=== PATIENT | male | born 1965 | race Caucasian/White ===

== ENCOUNTER 2023-12-15 12:06 | Emergency (ER) | payer MEDICAID, SELFPAY ==
--- NOTE | ~2023-12-15 | CT_ITS ---
EXAMINATION: CT HEAD WITHOUT CONTRAST CLINICAL INFORMATION: Dizziness COMPARISON: None available. TECHNIQUE: Contiguous axial imaging was performed from the skull base to vertex without intravenous administration of contrast. This CT examination was performed using dose optimization techniques as appropriate, variously including the following: *Automated exposure control *Adjustment of mA and/or kV according to patient size (this includes techniques or standardized protocols for targeted exams where dose is matched to indication/reason for exam; i.e. extremities or head) *Use of iterative reconstruction technique DLP: 694 mGy-cm FINDINGS: There is a small low density focus seen in the left basal ganglia, chronicity uncertain. A small lacune could have this appearance. There may be very similar finding in the right basal ganglia. If there is concern for stroke in this patient and I would recommend MRI with diffusion-weighted sequences. Otherwise, no intra or extra-axial fluid collection, hemorrhage, mass, or mass effect. Calvarium intact. CT/CT head/brain wo IV con IMPRESSION: No fracture or intracranial bleed. Small hypodensities in the left and right basal ganglia. If symptoms warrant, further evaluation with MRI may be helpful.
--- NOTE | ~2023-12-15 | CT_ITS ---
EXAMINATION: CT ANGIOGRAM HEAD CT ANGIOGRAM NECK CLINICAL INFORMATION: Dizziness. Tongue paresthesia. Transient ischemic attacks. COMPARISON: CT head and cervical spine from 12/15/2023. TECHNIQUE: Initial noncontrast reflesher imaging of the head and neck was performed. Noncontrast head CT was also performed. Test bolus sequences followed by intravenous administration 70 mL of Omnipaque 350. Helical imaging was performed in the axial plane from the aortic arch to the skull vertex. Delayed postcontrast imaging of the head was also performed. The data was processed at the lead cytogenetic technologist's workstation for generation of MIP sequences. Angled MIPs and volume rendered reformatted images were also generated at an offline 3D workstation. Stenoses are assessed in accordance with NASCET criteria unless otherwise indicated. This CT examination was performed using dose optimization techniques as appropriate, variously including the following: *Automated exposure control. *Adjustment of mA and/or kV according to patient size (this includes techniques or standardized protocols for targeted exams where dose is matched to indication/reason for exam; i.e. extremities or head). *Use of iterative reconstruction technique. DLP: 2358 mGy-cm FINDINGS: CT Head: There is no evidence of acute intracranial hemorrhage or edematous territorial infarction. Lacunar infarcts of the anterior aspect of the left putamen and lateral margin of the left thalamus. No additional loss of samuel-white matter differentiation. A few foci of hypoattenuation in the periventricular and deep white matter are consistent with mild microangiopathy. The ventricles are normal in morphology and size. No evidence for obstructive hydrocephalus. No abnormal mass effect or midline shift. No extra-axial fluid collections. No pathologic intra-axial enhancement. No acute soft tissue or osseous abnormalities. Mild mucosal thickening of the paranasal sinuses. The mastoid air cells and middle ear cavities are clear. Multifocal odontogenic enamel erosions and periapical lucencies. Chronic appearing depression of the left lamina papyracea. CT Neck: The thyroid gland and remaining cervical soft tissues are within normal limits. Changes of prior hinge laminoplasties from C3-C5. Moderate reversal the normal cervical lordosis centered on C4. Moderate degenerative stepwise anterolistheses of C2-C4. Mild degenerative stepwise retrolistheses of C4-C6. Advanced degenerative disc disease from C3-C6. Moderate degenerative disc disease at C2-C3 and C6-C7. Facet and uncovertebral joint arthropathy leads to osseous encroachment on the neural foramina from C2-C7. CT Upper Chest: Mild paraseptal emphysema the visualized upper lungs. Few calcified granulomas in the left upper lobe. Otherwise, the visualized lung apices and upper mediastinum are within normal limits. Neck CTA: Aortic Arch: Normal contour and caliber with moderate mixed fibrofatty and calcific type discogenic disease. Classic 3 vessel branching pattern of the aortic arch. Great Vessel Origins: No significant stenosis of the branch origins. Right Common Carotid Artery: No focal stenosis or occlusion. Cervical Right Internal Carotid Artery: Mixed fibrofatty and calcific atherosclerotic disease of the carotid bulb and proximal internal carotid artery causing less than 50% stenosis. Left Common Carotid Artery: No focal stenosis or occlusion. Cervical Left Internal Carotid Artery: Mixed fibrofatty and calcific atherosclerotic disease of the carotid bulb and proximal internal carotid artery causing less than 50% stenosis. Cervical Right Vertebral Artery: High-grade endoscopic stenosis of the origin. No additional No focal stenosis or occlusion. Cervical Left Vertebral Artery: Mildly dominant. No focal stenosis or occlusion. Brain CTA: Intracranial Internal Carotid Arteries: Calcific atherosclerotic disease of the intracranial internal carotid arteries without occlusion or flow-limiting stenosis. Right Anterior Cerebral Artery: Normal A1 segment. Normal opacification of the distal DOMENICA segments. Left Anterior Cerebral Artery: Normal A1 segment. Normal opacification of the distal DOMENICA segments. Anterior Communicating Artery: Normal. Right Middle Cerebral Artery: Normal M1 segment of the MCA without focal stenosis or occlusion. Normal arborization of the distal segments. Left Middle Cerebral Artery: Normal M1 segment of the MCA without focal stenosis or occlusion. Normal arborization of the distal segments. Right Vertebral Artery: Normal V4 segment. The posterior inferior cerebellar artery is not well opacified; however, there is no CT evidence of acute occlusion. Left Vertebral Artery: Normal V4 segment. The posterior inferior cerebellar artery is not well opacified; however, there is no CT evidence of acute occlusion. Basilar Artery: Normal without focal stenosis or occlusion. Normal appearance of the proximal superior cerebellar arteries. Right Posterior Cerebral Artery: The P1 segment is mildly diminutive. origin of the CERTIFIED NURSE AIDE with robust opacification of the posterior communicating artery. Normal opacification of the distal CERTIFIED NURSE AIDE segments. Left Posterior Cerebral Artery: Normal P1 segment. Normal opacification of the distal CERTIFIED NURSE AIDE segments. Normal opacification of the superior sagittal, straight, transverse, and sigmoid sinuses. CT/CT angio head neck IMPRESSION: 1. No evidence of acute intracranial hemorrhage or edematous territorial infarction. Lacunar infarcts of the left-sided deep nuclei. Mild underlying microangiopathy. 2. CTA of the head and neck without proximal occlusion. High-grade stenosis of the origin of the right vertebral artery. No additional flow-limiting stenoses. 3. Moderate to advanced multilevel degenerative spondyloarthropathy of the cervical spine.
--- NOTE | ~2023-12-15 | CT_ITS ---
EXAMINATION: CT CERVICAL SPINE WITHOUT CONTRAST CLINICAL INFORMATION: Dizziness. Pain COMPARISON: None available. TECHNIQUE: Thin section axial imaging with sagittal coronal reformats. This CT examination was performed using dose optimization techniques as appropriate, variously including the following: *Automated exposure control *Adjustment of mA and/or kV according to patient size (this includes techniques or standardized protocols for targeted exams where dose is matched to indication/reason for exam; i.e. extremities or head) *Use of iterative reconstruction technique DLP: 463 mGy-cm FINDINGS: Advanced degenerative changes observed, C3-C6 with posterior spurring noted at the C3-C4 level creating slight mass effect on the ventral aspect of the canal. Findings likely are chronic as there is dense sclerosis in the vertebral bodies with areas of cystic degenerative change in the region of the endplates. No evidence though for an acute fracture or destructive process. Postsurgical changes are observed at this level. CT/CT cervical spine wo IV con IMPRESSION: Extensive chronic changes noted and postsurgical changes observed but no evidence for an acute fracture. Fleischner guidelines were followed.
--- NOTE | ~2023-12-15 | CT_ITS ---
EXAMINATION: CT LUMBAR SPINE WITHOUT CONTRAST CLINICAL INFORMATION: Radiculopathy. Pain COMPARISON: None available. TECHNIQUE: Thin section axial images with sagittal coronal reformats through the lumbar spine are obtained. This CT examination was performed using dose optimization techniques as appropriate, variously including the following: *Automated exposure control *Adjustment of mA and/or kV according to patient size (this includes techniques or standardized protocols for targeted exams where dose is matched to indication/reason for exam; i.e. extremities or head) *Use of iterative reconstruction technique DLP; 402 mGy-cm FINDINGS: There is grade 1 forward spondylolisthesis with spondylolysis L5 upon S1 with posterior spurring. Disc space narrowing with gaseous disc degeneration observed. No fracture. At L1-L2, L2-L3, L3-L4 and L4-L5, no evidence for fracture or destructive lesion or encroachment on the spinal canal. The aorta demonstrates atherosclerotic change and ectasia but is nonaneurysmal. There is degenerative spurring in the SI joints right greater than left. Sacrum intact. CT/CT lumbar spine wo IV con IMPRESSION: Advanced degenerative changes observed particularly L5-S1 and the right SI joint but no evidence for an acute fracture.
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
[2023-12-15 12:10] VITALS: BP 108/77; PULSE 102; RESP 18; TEMP 36.7; O2SAT 100; BMI 27.9
[2023-12-15 14:39] VITALS: BP 149/86; PULSE 107; RESP 16; TEMP 36.7; O2SAT 99
--- NOTE | 2023-12-15 14:54 | ECG_ITS ---
Test Reason : WEAKNESS Blood Pressure : / mmHG Vent. Rate : 086 BPM Atrial Rate : 086 BPM P-R Int : 136 ms QRS Dur : 086 ms QT Int : 372 ms P-R-T Axes : 067 038 058 degrees QTc Int : 445 ms Normal sinus rhythm Normal ECG When compared with ECG of 11-DEC-2006 16:17, No significant change was found Referred By: Anisha Csaas Electronically Signed By:JOSHUA VILLA
[2023-12-15 15:18] LABS: MANUAL DIFF FLAG NO
[2023-12-15 15:31] LABS: Basophils Percent Auto 0.9 % (0-2); Eosinophils Absolute Auto 0.1 X10*3/uL (0.0-0.4); Eosinophils Percent Auto 1.7 % (0-4); Hematocrit 40.5 % (42.0-52.0); Hemoglobin 14.4 g/dl (14.0-18.0); Imm Gran Abs Auto 0.02 X10*3/uL (0.00-0.03); Imm Gran Pct Auto 0.4 % (0.0-0.4); Lymphocytes Absolute Auto 1.5 X10*3/uL (1.2-4.9); Lymphocytes Percent Auto 32.8 % (20-40); Mean Corpuscular HGB Conc 35.6 g/dl (31.0-36.0); Mean Corpuscular Hemoglobin 32.1 pg (27.0-33.0); Mean Corpuscular Volume 90.2 fL (80.0-98.0); Monocytes Absolute Auto 0.3 X10*3/uL (0.1-1.2); Monocytes Percent Auto 6.8 % (2-11); Neutrophils Absolute Auto 2.6 x10*3/uL (2.0-8.3); Neutrophils Percent Auto 57.4 % (45-73); Platelet Count 142 X10*3/uL (160-400); Red Blood Count 4.49 X10*6/uL (4.60-5.80); Red Cell Distribution Width 12.9 % (11.0-16.0); White Blood Count 4.6 X10*3/uL (4.8-10.8)
[2023-12-15 15:32] LABS: Alanine Aminotransferase 204 U/L (0-40); Albumin Level 4.4 g/dL (3.5-5.0); Alkaline Phosphatase 106 U/L (39-117); Anion Gap 18 (12-20); Aspartate Amino Transferase 78 U/L (5-37); Bilirubin Direct 0.3 mg/dL (0.0-0.5); Bilirubin Total 0.6 mg/dL (0.0-1.0); Blood Urea Nitrogen 24 mg/dL (9-16); Calcium 10.2 mg/dL (8.4-10.2); Carbon Dioxide 29 mmol/L (22-29); Chloride 93 mmol/L (96-108); Creatinine Clr Calc Pharmacy 51.5; Estimated Glomerular Filt Rate 39; Ethanol < 10 mg/dL; Glucose Random 141 mg/dL (60-115); Magnesium 1.8 mg/dL (1.6-2.6); Potassium 3.8 mmol/L (3.3-5.1); Sodium 136 mmol/L (135-145); Total Protein 9.1 g/dL (6.5-8.0)
[2023-12-15 15:37] LABS: INTERNATIONAL NORM RATIO 0.9 (0.9-1.1); Prothrombin Time 10.9 SEC (11.1-13.3)
[2023-12-15 15:39] LABS: Troponin-I High Sensitivity 6.9 ng/L (<3.5-35.0)
[2023-12-15] MEDS: iohexoL 350 MG/ML 100 ML INFUS..BTL 70 ML IV (16:55)
[2023-12-15 18:26] VITALS: BP 140/76; PULSE 89
[2023-12-15 18:30] VITALS: BP 126/73; PULSE 83
[2023-12-15 18:36] VITALS: BP 98/65; PULSE 76
[2023-12-15 18:52] VITALS: BP 98/65; PULSE 75; RESP 16; TEMP 36.6; O2SAT 98
== END 2023-12-15 18:53 | disposition home or self-care (01) ==
PROVIDERS: Emergency Provider Emergency Medicine
DX: R42 Dizziness and giddiness (principal); I95.1 Orthostatic hypotension; R53.1 Weakness; R51.9 Headache, unspecified; M54.2 Cervicalgia; M54.50 Low back pain, unspecified; Z79.899 Other long term (current) drug therapy
CPT/HCPCS: 36415; 70450; 70496; 70498; 72125; 72132; 80048; 80076; 80307; 83735; 84484; 85025; 85610; 93005; 99283; 99284; Q9967

== ENCOUNTER → 2023-12-15 14:54 | Outpatient (BNV) | payer MEDICAID, SELFPAY | PROVIDERS: Emergency Provider Emergency Medicine; Visit Provider Internal Medicine | DX: R53.1 Weakness (principal) | CPT/HCPCS: 93010 ==

== ENCOUNTER 2025-04-24 11:52 | Emergency (ER) | payer MEDICAID, SELFPAY ==
[2025-04-24] VITALS (8 sets, daily range): BP systolic 138–162; BP diastolic 78–98; PULSE 74–122; RESP 12–18; TEMP 36.8–37; O2SAT 98–100; BMI 23.0
--- NOTE | ~2025-04-24 | MR_ITS ---
CLINICAL HISTORY: dizzness ? crebellar infart MR brain without contrast. COMPARISON: None provided. FINDINGS: No abnormal diffusion restriction in the brain parenchyma or extra-axial spaces. No evidence of mass, mass effect or midline shift. No intracranial hemorrhage or abnormal extra-axial fluid collection. Chronic lacunar infarct present within the left basal ganglia. No evidence of hydrocephalus. The basilar cisterns are patent. Patchy hyperintense T2/FLAIR areas within the periventricular white matter and whitten radiata compatible with moderate white matter small vessel disease. Cerebellar hemispheres and cerebellar vermis are normal. Fourth ventricle is normal. No brainstem abnormality is identified. Intracranial flow voids are patent. The visualized paranasal sinuses and mastoid air-cells are clear. IMPRESSION: 1. No acute intracranial findings. No evidence of acute ischemia, mass or mass effect. 2. Moderate white-matter small-vessel disease This document has been electronically signed by: Cristóbal Snyder MD on 04/24/2025 18:54:55
--- NOTE | 2025-04-24 11:58 | ED.DIZZY ---
HPI - Dizziness General Chief Complaint: Dizziness Stated Complaint: dizzy, combo of things. Time Seen by Provider: 04/24/25 14:11 Source: patient Mode of arrival: ambulatory Limitations: no limitations History of Present Illness HPI Narrative: This is a 59 years old male presented to the emergency department with a chief complaint of generalized weakness, lack of energy, dizziness which she described as spinning. He has a history of dizziness in the past he had a CT angiography which showed a right vertebral stenosis in the right. He continued to smoke. He is not taking any aspirin either MD elicited complaint: dizziness Onset (ago): day(s) Timing: gradual onset Severity: moderate Description: sense of movement Context: change in medication Exacerbating factors: nothing Associated symptoms: denies other symptoms and vomiting Related Data Previous Rx's ?Medication ?Instructions ?Recorded aspirin 81 mg tablet 81 mg PO DAILY #30 tabs 04/24/25 atorvastatin 40 mg tablet (Lipitor) 40 mg PO BEDTIME #30 tabs 04/24/25 Allergies Allergy/AdvReac Type Severity Reaction Status Date / Time No Known Allergies Allergy Verified 04/24/25 11:59 Review of Systems Constitutional: Constitutional: Reports anorexia and Reports fatigue Neurologic: Reports as per HPI Endocrine: Endocrine: Reports fatigue PMFSH Past Medical History Reminder: History of hypertension, smoker, history of right vertebral artery stenosis Medical History (Updated 04/24/25 @ 14:32 by Rafa Moon MD) Dizziness Stenosis of right vertebral artery Brain TIA Social History Social History Advance Directives: No Advance Directives Information Provided: Yes Do you have a plan to hurt others: No Plan Physical Exam Vital Signs: Vital Signs: Last Vital Signs Temp 98.4 F 04/24/25 18:17 Pulse 85 04/24/25 18:49 Resp 12 04/24/25 18:49 BP 157/91 H 04/24/25 18:49 Pulse Ox 100 04/24/25 18:49 O2 Del Method Room Air 04/24/25 18:49 BMI result Body Mass Index 23.0 Const: General: cooperative Orientation/consciousness: patient oriented x3 HEENT: Head: Yes normal to inspection Ears: hearing grossly normal bilaterally General nose exam: Normal external nose present Face and sinus: Yes normal facial exam Mouth: Normal oral and palatal mucosa present Throat: Yes posterior oropharynx normal Neck: Neck: Yes normal visual inspection Chest: Chest palpation & inspection: normal inspection of the chest Resp: Effort & Inspection: normal respiratory effort Cardio: Jugular venous distension: no JVD Rate: regular rate Rhythm: regular rhythm GI: Inspection: Yes normal to inspection Palpation (GI): Soft to palpation, not firm and nontender : General: Yes no CVA tenderness Back/Spine/Pelvis: Back: no CVA tenderness Skin: General skin exam: no rashes or lesions noted Neuro: Other: Neurologically intact cranial nerve normal stroke scale of 0 General: patient oriented x3 NIH Stroke Scale Level of Consciousness: Alert Level of Consciousness Questions: Answers both questions correctly Level of Consciousness Commands: Performs both tasks correctly Best Gaze: Normal Visual: No visual loss Facial Palsy: Normal Motor Arm (Right): No drift Motor Arm (Left): No drift Motor Leg (Right): No drift Motor Leg (Left): No drift Limb Ataxia: Absent Sensory: Normal Best Language: No aphasia Dysarthia: Normal Extinction and Inattention: No abnormality Score: 0 Course Course Course Narrative: This is a Rapid Medical Examination (RME) performed by Lee Roladn PA-C in triage. Full HPI, ROS, assessment and treatment plan per primary provider in the Main ED. Hx: 59 yo M hx of TIA and right vertebral aa stenosis here for eval of intermittent dizziness x2 days. reports room spinning sensation on standing which resolves w/ rest. also endorses increasing fatigue. PE/vitals: ambulating w/ cane per baseline. Plan: labs, ekg - will defer imaging to primary provider. Reevaluation(s) Reevaluation #1: Patient remained stable we are waiting for the MRI case will be signed out to Dr. Linder Time: 16:03 Reevaluation #2: Patient re-evaluated, tolerating oral intake, feels improved, patient was signed out to me to follow-up on MRI of the brain, patient has known right vertebral stenosis, nothing to do acutely. My interpretation is in agreement with radiology's impression of the MRI of the brain and that there are no acute intracranial abnormalities. I discussed all findings with the patient at bedside and he understands that he will need to continue with a statin and a daily aspirin moving forward and he is strongly encouraged to follow-up with his primary care doctor. He otherwise appears well and nontoxic. Time: 19:28 Medications Administered Discontinued Medications Generic Name Dose Route Start Last Admin Trade Name Travonq PRN Reason Stop Dose Admin Sodium Chloride 1,000 mls @ 999 mls/hr 04/24/25 14:30 04/24/25 15:54 Ns IVCONT 04/24/25 15:30 Infused .Q1H1M MIKO Infusion Medical Decision Making Medical Decision Making [facility] Narrative: Patient is here complaining of dizziness in the setting of right vertebral stenosis we will obtain imaging stroke scale is 0 at this time Differential Diagnosis Differential Diagnoses: The differential diagnosis associated with the presentation includes Dehydrated/TIA/CVA Lab Data 04/24/25 12:22 04/24/25 12:22 Labs: Lab Results 04/24/25 Range/Units 12:22 WBC 5.9 (4.8-10.8) X10*3/uL RBC 4.34 L (4.60-5.80) X10*6/uL Hgb 13.6 L (14.0-18.0) g/dl Hct 38.2 L (42.0-52.0) % MCV 88.0 (80.0-98.0) fL MCH 31.3 (27.0-33.0) pg MCHC 35.6 (31.0-36.0) g/dl RDW 13.1 (11.0-16.0) % Plt Count 264 D (160-400) X10*3/uL MPV 10.1 (9.4-12.4) fL Immature Gran % (Auto) 0.3 (0.0-0.4) % Neut % (Auto) 57.4 (45-73) % Lymph % (Auto) 30.2 (20-40) % Kendall % (Auto) 9.5 (2-11) % Eos % (Auto) 1.4 (0-4) % Baso % (Auto) 1.2 (0-2) % Lymph # (Auto) 1.8 (1.2-4.9) X10*3/uL Kendall # (Auto) 0.6 (0.1-1.2) X10*3/uL Eos # (Auto) 0.1 (0.0-0.4) X10*3/uL Baso # (Auto) 0.1 (0.0-0.2) X10*3/uL Abs Immat Gran (auto) 0.02 (0.00-0.03) X10*3/uL Absolute Neuts (auto) 3.4 (2.0-8.3) x10*3/uL Absolute Nucleated RBC 0.000 (0.0-0.012) X10*3/uL Nucleated RBC % (auto) 0.0 (0.0-0.2) /100WBC Sodium 137 (135-145) mmol/L Potassium 4.9 D (3.3-5.1) mmol/L Chloride 106 (96-108) mmol/L Carbon Dioxide 20 L (22-29) mmol/L Anion Gap 16 (12-20) BUN 19 H (9-16) mg/dL Creatinine 1.67 H (0.5-1.4) mg/dL Estim Creat Clear Calc 50.0 Estimated GFR 43 Random Glucose 124 H (60-115) mg/dL Calcium 9.3 D (8.4-10.2) mg/dL Magnesium 1.9 (1.6-2.6) mg/dL Total Bilirubin 0.3 (0.0-1.0) mg/dL AST 61 H (5-37) U/L ALT 56 H (0-40) U/L Alkaline Phosphatase 85 (39-117) U/L Troponin I High Sens 4.0 (<3.5-35.0) ng/L Total Protein 7.7 (6.5-8.0) g/dL Albumin 4.5 (3.5-5.0) g/dL Discharge Plan Discharge Clinical Impression: Dizziness Patient Disposition: Home, Self-Care Instructions: Dizziness (ED) Additional Instructions: Two prescriptions have been sent to your pharmacy and should be taken as prescribed. You should also follow-up with your primary care doctor but do not hesitate to return to the emergency room for any acute worsening of symptoms. Prescriptions: New atorvastatin [Lipitor] 40 mg tablet 40 mg PO BEDTIME Qty: 30 0RF aspirin 81 mg tablet 81 mg PO DAILY Qty: 30 0RF Referrals: Danie Rey NP [Primary Care Provider, Family Practice] Print Language: Nepali
--- NOTE | 2025-04-24 12:00 | ECG_ITS ---
Test Reason : DIZINESS Blood Pressure : */* mmHG Vent. Rate : 118 BPM Atrial Rate : 118 BPM P-R Int : 134 ms QRS Dur : 80 ms QT Int : 322 ms P-R-T Axes : 75 24 74 degrees QTcB Int : 451 ms Sinus tachycardia Otherwise normal ECG When compared with ECG of 15-Dec-2023 18:43, No significant change was found Referred By: Brittany Roldan Electronically Signed By: FROYLAN BYNUM MD
[2025-04-24 12:25] LABS: MANUAL DIFF FLAG NO
[2025-04-24 12:27] LABS: Hematocrit 38.2 % (42.0-52.0); Hemoglobin 13.6 g/dl (14.0-18.0); Imm Gran Abs Auto 0.02 X10*3/uL (0.00-0.03); Imm Gran Pct Auto 0.3 % (0.0-0.4); Lymphocytes Absolute Auto 1.8 X10*3/uL (1.2-4.9); Mean Corpuscular HGB Conc 35.6 g/dl (31.0-36.0); Mean Corpuscular Hemoglobin 31.3 pg (27.0-33.0); Mean Corpuscular Volume 88.0 fL (80.0-98.0); NRBC Abs Auto 0.000 X10*3/uL (0.0-0.012); NRBC Pct Auto 0.0 /100WBC (0.0-0.2); Platelet Count 264 X10*3/uL (160-400); Red Blood Count 4.34 X10*6/uL (4.60-5.80); White Blood Count 5.9 X10*3/uL (4.8-10.8)
[2025-04-24 12:40] LABS: Alanine Aminotransferase 56 U/L (0-40); Albumin Level 4.5 g/dL (3.5-5.0); Alkaline Phosphatase 85 U/L (39-117); Anion Gap 16 (12-20); Aspartate Amino Transferase 61 U/L (5-37); Blood Urea Nitrogen 19 mg/dL (9-16); Calcium 9.3 mg/dL (8.4-10.2); Carbon Dioxide 20 mmol/L (22-29); Chloride 106 mmol/L (96-108); Creatinine Clr Calc Pharmacy 50.0; Estimated Glomerular Filt Rate 43; Magnesium 1.9 mg/dL (1.6-2.6); Potassium 4.9 mmol/L (3.3-5.1); Sodium 137 mmol/L (135-145); Total Protein 7.7 g/dL (6.5-8.0)
[2025-04-24 12:48] LABS: Troponin-I High Sensitivity 4.0 ng/L (<3.5-35.0)
--- OUTSIDE RECORDS SUMMARY | 2025-04-24 17:15 | XMS_ITS | Clinical Summary ---
Author Organization [facility], Address [address] [place] [address] Phone Care Team Providers Care Cut Off Machine Helper Name Role Phone Unavailable Primary Care Provider Unavailabl e Allergies No known active allergies Medications amLODIPine (NORVASC) 10 MG tablet Take 10 mg by mouth 1 (one) time each day Active atorvastatin (LIPITOR) 80 MG tablet Take 80 mg by mouth 1 (one) time each day Active hydrOXYzine (ATARAX) 25 MG tablet Take 25 mg by mouth 3 (three) times a day if needed for itching Active pregabalin (LYRICA) 75 MG capsule Take 75 mg by mouth in the morning and 75 mg in the evening. Active acetaminophen (TYLENOL) 500 MG tablet Take 500 mg by mouth every 6 (six) hours if needed 08/01/2023 Active aspirin (ST NEELAM) 81 MG EC tablet Take 81 mg by mouth 01/31/2024 Active cyclobenzaprine (FLEXERIL) 10 MG tablet Take 10 mg by mouth 3 (three) times a day if needed 12/10/2023 Active DULoxetine (CYMBALTA) [address] capsule Take 30 mg by mouth 1 (one) time each day 01/16/2024 Active gabapentin (NEURONTIN) 300 MG capsule Take 300 mg by mouth 01/20/2024 Active lidocaine (LIDODERM) 5 % patch 01/16/2024 Active thiamine (VITAMIN B-1) 100 MG tablet Take 100 mg by mouth in the morning and 100 mg in the evening. 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, modified White class A 01/06/2024 Arthritis 01/06/2024 Hypertension 01/06/2024 Hypercholesterolemia 01/06/2024 Social History Tobacco Use Types Packs/Day Years Used Date Smoking Tobacco: Never Assessed Sex and Gender Information Value Date Recorded Sex Assigned at Not on file Legal Sex Male 1:07 PM EDT Gender Identity Not on file Sexual Orientation Not on file Last Filed Vital Signs Vital Sign Reading Time Taken Comments Blood Pressure 135/92 02/02/2024 10:49 AM EDT Pulse 97 02/02/2024 10:49 AM EDT Temperature - - Respiratory Rate - - Oxygen Saturation 98% 02/02/2024 10:49 AM EDT Inhaled Oxygen Concentration - - Weight 72.6 kg (160 lb) 02/02/2024 10:49 AM EDT Height 177.8 cm (5' 10 ) 02/02/2024 10:49 AM EDT Body Mass Index 22.96 02/02/2024 10:49 AM EDT Plan of Treatment Health Maintenance Due Date Last Done Comments Pneumococcal Vaccine: 50+ Ye ars (1 of 2 - PCV) 1986 Colorectal Cancer Screening: Annual FOBT 2016 Colorectal Cancer Screening: Colonoscopy 2016 Colorectal Cancer Screening: Sigmoidoscopy 2016 Diabetes: Ophthalmology Exam 01/06/2024 Diabetes: Pedal Pulse Checked 01/06/2024 Diabetes: Sensory Foot Exam 01/06/2024 Diabetes: Visual Foot Exam 01/06/2024 Hepatitis B Vaccine (2 of 3 - Hep B Twinrix 3-dose series) 05/11/2024 04/13/2024 Influenza Vaccine (#1) 2025 09/13/2014 Diabetes: Hemoglobin A1C 05/31/2025 02/28/2025, 12/2 08/2022 Insurance Medicaid [place]
--- OUTSIDE RECORDS SUMMARY | 2025-04-24 17:15 | XMS_ITS | Clinical Summary ---
Author Organization [facility] Address [address] [place] [id number] Phone Care Team Providers Care Corporate Coordinator Name Role Phone Eder Russ MD Primary Care Provider [phone] Medications acetaminophen (TYLENOL) 500 MG tablet Take 500 mg by mouth every 6 (six) hours as needed. 08/01/2023 Active amLODIPine (NORVASC) 2.5 MG tablet Take 2.5 mg by mouth daily as needed. 07/09/2024 Active aspirin 81 MG EC tablet Take 1 tablet by mouth daily. 01/31/2024 Active atorvastatin (LIPITOR) 80 MG tablet Take 80 mg by mouth daily. Active celecoxib (CELEBREX) 200 MG capsule Take 200 mg by mouth daily. 05/31/2024 Active clopidogrel (PLAVIX) 75 mg tablet Take 1 tablet by mouth daily. 04/27/2024 Active cyclobenzaprine (FLEXERIL) 5 MG tablet Take 5 mg by mouth as needed. Active DULoxetine (CYMBALTA) 60 MG capsule Take 1 capsule by mouth daily. 07/09/2024 Active folic acid (FOLVITE) 1 MG tablet Take 1 tablet by mouth daily. 04/27/2024 Active gabapentin (NEURONTIN) 300 MG capsule Take 300 mg by mouth 3 (three) times a day. Active hydroCHLOROthia zide 12.5 mg capsule Take 12.5 mg by mouth every morning. 07/19/2024 Active lidocaine (LIDODERM) 5 % Place 1 patch onto the skin daily. 01/16/2024 Active hydrOXYzine (ATARAX) 25 MG tablet Take 25 mg by mouth 3 (three) times a day as needed. 04/27/2024 Active predniSONE (DELTASONE) 20 MG tablet Take 20 mg by mouth daily. 07/11/2024 Active VITAMIN B-1, MONONITRATE, 100 mg Tab tablet Take 1 tablet by mouth 2 (two) times a day. 06/21/2024 Active traMADoL (ULTRAM) 50 mg tablet Take 1 tablet by mouth every 12 (twelve) hours. 07/19/2024 Active Active Problems No known active problems Social History Tobacco Use Types Packs/Day Years Used Date Smoking Tobacco: Never Assessed Child or Family Care Answer Date Record ed Do you have problems with on e of the following making it difficult for you to work, study, or receive health care? Family care (i.e. spouse, parents, other family) 07/19/2024 Education Answer Date Recorded Are you interested in help w ith more adult education (for example, completing high school, GED, job training, learning the [place] language, technical skills, or developing parenting skills)? No 07/19/2024 Are you concerned about learning? Not on file 07/19/2024 No 07/19/2024 Yes 07/19/2024 Food Answer Date Recorded Within the past 6 months we worried whether our food would run out before we got money to buy more. Sometimes True 024 Within the past 6 months the food we bought just didn't last and we didn't have enough money to get more. Sometimes True 12/2023 Residential Stability Answer Date Recor ded What is your housing situation today? I do not have housing (staying in a hotel, in a chcf, living outside on the street, on a beach, in a car, or in a park) 07/19/2024 Number of times moved in last year Not on file 07/19/2024 Paying for Meds Answer Date Recorded Do you have trouble paying for medicines? No 07/19/2024 Paying Utility Bills Answer Date Record ed Do you have trouble paying your heating or elect ricity bill? Yes 07/19/2024 Transportation Answer Date Recorded Has the lack of transportati on kept you from medical appointments or from getting medications? Yes 07/19/2024 Digital Access Answer Date Recorded Yes 07/19/2024 No 07/19/2024 Do you have reliable internet access at home? No 07/19/2024 Do you have a device (e.g., phone, tablet, computer) with a working camera? No 07/19/2024 Intimate Partner Violence Answer Date R ecorded Are you denied basic needs s uch as food, clothing, or medical care? No 07/24/2024 In the past 12 months have y ou been in a relationship with a person who hurts, threatens, or tries to control you? No 07/24/2024 Are you denied basic needs s uch as food, clothing, or medical care? No 07/24/2024 In the past 12 months have y ou been in a relationship with a person who hurts, threatens, or tries to control you? No 07/24/2024 Sex and Gender Information Value Date Recorded Sex Assigned at Male 07/10/2024 9:17 AM EST Legal Sex Male 9:13 AM EST Gender Identity Male 07/10/2024 9:17 AM EST Sexual Orientation Straight 07/10/2024 9: 17 AM EST Last Filed Vital Signs Vital Sign Reading Time Taken Comments Blood Pressure 188/81 07/24/2024 11:54 AM EST Pulse 77 07/24/2024 11:54 AM EST Temperature 36.6 C (97.8 F) 07/24/2024 11:53 AM EST Respiratory Rate - - Oxygen Saturation 100% 07/24/2024 11:54 AM EST Inhaled Oxygen Concentration - - Weight 75.3 kg (166 lb) 07/24/2024 11:47 AM EST Height - - Body Mass Index - - Plan of Treatment Health Maintenance Due Date Last Done Comments POTASSIUM LEVEL 1967 SMOKING Hx and SMOKELESS TOBACCO SCREENING 1980 HIV ONE-TIME SCREENING (18-6 5 YEARS) 1985 COLOGUARD 2012 COLONOSCOPY 2012 COLORECTAL CANCER SCREENING 2012 FIT TEST 2012 FOBT 2012 SIGMOIDOSCOPY 2012 VIRTUAL COLONOSCOPY 2012 PNEUMOCOCCAL VACCINES (50+ years) (1 of 1 - PCV) 2017 ZOSTER VACCINES (1 of 2) 2017 REPEAT PHQ 08/24/2024 07/24/2024, 07/24/2024 INFLUENZA VACCINE (#1) 2025 09/13/2014 COVID-19 VACCINE (2023-2 5 season) 2025 DEPRESSION SCREENING 07/24/2025 07/24/2024, 07/24/2024 LIPID PANEL 08/04/2028 08/04/2023, 08/04/2023, 05/02/2023 Adult Td,Tdap Booster 04/13/2034 04/13/2024 , 09/27/2008 HEPATITIS C SCREENING Completed 08/04/2023 HEPATITIS A VACCINES Aged Out 04/13/2024 No long er eligible based on patient's age to complete this topic HIB VACCINES Aged Out No longer eligi ble based on patient's age to complete this topic MENINGOCOCCAL VACCINES (ACWY) Aged Out No longer eligible based on patient's age to complete this topic MENINGOCOCCAL VACCINES (B) Aged Out N o longer eligible based on patient's age to complete this topic Medical Devices Not on file Insurance C3 ACO C3 ACO C3 ACO C3 ACO C3 ACO C3 ACO Care Teams Corporate Coordinator Relationship Specialty Start Date End Date Eder Russ MD [address] [place] [address] PCP - General Family Medicine 07/10/24 Additional Source Comments The information contained in this document represents components of the legal health record. It is not the complete legal health record.[facility]
--- OUTSIDE RECORDS SUMMARY | 2025-04-24 17:15 | XMS_ITS | Clinical Summary ---
Author Organization [facility] Address [address] [place] [address] Phone Care Team Providers Care Linen Room Custodian Name Role Phone Danie Rey NP Primary Care Provider [phone] Encounters Date Type Department Care Team Description 03/22/2025 Telephone Gastroenterology [facility] [address] [facility] [address] [facility] [address] [place] [id number] Jamel Adame MD from Last 3 Months Social History Tobacco Use Types Packs/Day Years Used Date Smoking Tobacco: Never Assessed Sex and Gender Information Value Date Recorded Sex Assigned at Not on file Legal Sex Male 8:26 AM EST Gender Identity Not on file Sexual Orientation Not on file Plan of Treatment Health Maintenance Due Date Last Done Comments Diabetes: Annual GFR (Glomerular Filtration Rate) 1967 Diabetes: Annual Foot Exam 1977 Diabetes: Annual Retina Eye Exam 1977 Pneumococcal Vaccine: 50+ Years (1 of 1 - PCV) 2017 Zoster Vaccines (1 of 2) 2017 Colorectal Cancer Screening: Colonoscopy 07/18/2022 HIV Screening 07/18/2022 Social Influencers of Health Screening 07/18/2022 Hepatitis A Vaccines (2 of 3 - Hep A Twinrix risk 3-dose series) 05/11/2024 04/13/2024 Hepatitis B Vaccines (2 of 3 - Hep B Twinrix 3-dose series) 05/11/2024 04/13/2024 Hypertension/CHF/CAD Annual BMP Blood Test 06/16/2024 Depression Screening 08/15/2024 Diabetes: Annual Urine Albumin-Creatinine Ratio (uACR) 01/23/2025 Diabetes: Blood Sugar Contro l Test (HGBA1C) 01/23/2025 08/04/2023 COVID-19 Vaccine (1 - 2023-2 5 season) 2025 Influenza Vaccine (#1) 2025 09/13/2014 Cholesterol Screening (Lipid Panel) 08/04/2028 08/04/2023, 08/04/2023, 05/02/2023 DTaP,Tdap,and Td Vaccines (3 - Td or Tdap) 04/13/2034 04/13/2024, 09/27/2008 Hepatitis C Screening Completed 08/04/2023 HIB Vaccines Aged Out No longer eligi ble based on patient's age to complete this topic HPV Vaccines Aged Out No longer eligi ble based on patient's age to complete this topic IPV Vaccines Aged Out No longer eligi ble based on patient's age to complete this topic MMR Vaccines Aged Out No longer eligi ble based on patient's age to complete this topic Meningococcal ACWY Vaccine Aged Out N o longer eligible based on patient's age to complete this topic Meningococcal B Vaccine Aged Out No l onger eligible based on patient's age to complete this topic RSV Immunization Patients Under 20 months Aged Out No longer eligible b ased on patient's age to complete this topic Varicella Vaccines Aged Out No longer eligible based on patient's age to complete this topic Insurance MEDICAID - [place] Care Teams Linen Room Custodian Relationship Specialty Start Date End Date Danie Rey NP [address] [place] [address] PCP - General Nurse Practitioner 03/22/25
== END 2025-04-24 20:28 | disposition home or self-care (01) ==
PROVIDERS: Physician Assistant Medical; Emergency Provider Emergency Medicine; PCP Nurse Practitioner Family
DX: R42 Dizziness and giddiness (principal); R53.1 Weakness
CPT/HCPCS: 36415; 70551; 80053; 83735; 84484; 85025; 93005; 96360; 99284; 99285

== ENCOUNTER → 2025-04-24 12:00 | Outpatient (BNV) | payer MEDICAID, SELFPAY | PROVIDERS: PCP Nurse Practitioner Family; Visit Provider Internal Medicine Cardiovascular Disease | DX: R00.0 Tachycardia, unspecified (principal) | CPT/HCPCS: 93010 ==

== ENCOUNTER → 2025-04-24 14:23 | Outpatient (BNV) | payer MEDICAID, SELFPAY | PROVIDERS: Emergency Provider Emergency Medicine; PCP Nurse Practitioner Family; Visit Provider Radiology Diagnostic Radiology | DX: R42 Dizziness and giddiness (principal); R90.82 White matter disease, unspecified | CPT/HCPCS: 70551 ==

== ENCOUNTER 2025-06-12 14:36 | Outpatient (AMB) | payer MEDICAID, SELFPAY ==
--- OUTSIDE RECORDS SUMMARY | 2025-06-06 23:59 | XMS_ITS | Continuity of Care Document ---
Author Organization [facility] Address [address] [place] [address]- Care Team Providers Care Environmental Manager Name Role Phone Eder Russ MD Primary Care Physician Encounter [facility] Date(s): 05/07/25 - 06/06/25 [facility] [address] [place], [place] [address] Attending Physician: Franchesca Gonzalez Admitting Physician: Franchesca Gonzalez Referring Physician: AdmtrFranchesca Encounter Type: Triage Allergies, Adverse Reactions, Alerts No Known Allergies Immunizations Given and Recorded Vaccine Date Status Refusal Reason Fluzone (oldterm) 09/13/14 Given tetanus/diphtheria/pertussis, acel(Tdap) 09/27/08 Given Medications 1 Cane 1 Cane, See Instructions, # 1 each, Refills 0, Tot. Refills 0, Maintenance, ICD: R53.1 weakness, 01/15/24 8:57:00 AM EDT, Supply Start Date: 01/15/24 Status: Ordered Medication Dispense Status: Completed Quantity: 1.0 Unit: each Total Allowed Fills: 1 Fills Dispensed: 0 acetaminophen 325 mg oral tablet 975 mg, By Mouth, 3 times a day, # 90 tablet, Refills 0, Tot. Refills 0, Maintenance, 01/15/24 8:40:00 AM EDT, Route to Pharmacy Electronically, [facility], Partial fill upon patient request if the prescription is for a schedule II opioid drug., 178, cm, 01/14/24 4:29:00 EDT, Height, 74.1, kg, 01/13/24 16:25:00 EDT, Dry Weight Start Date: 01/15/24 Status: Ordered Medication Dispense Status: Completed Quantity: 90.0 Unit: tablet Total Allowed Fills: 1 Fills Dispensed: 0 amLODIPine 2.5 mg oral tablet 2.5 mg, 1, tablet, By Mouth, Daily, # 30 tablet, Refills 0, Maintenance, 01/31/25 12:11:00 PM EDT, Partial fill upon patient request if the prescription is for a schedule II opioid drug. Start Date: 01/31/25 Status: Ordered Medication Dispense Status: Completed Quantity: 30.0 Unit: tablet Total Allowed Fills: 1 Fills Dispensed: 0 aspirin 81 mg oral delayed release tablet 1 tablet = 81 mg, By Mouth, Daily, # 90 tablet, 3 Refills, Maintenance, 01/31/24 9:31:00 AM EDT, CR Tablet, [id number], Partial fill upon patient request if the prescription is for a schedule II opioid drug., 178, cm, 01/30/24 8:13:00 EDT, Height, 74.1, kg, 01/13/24 16:25:00 EDT, Dry Weight Start Date: 01/31/24 Status: Ordered Medication Dispense Status: Completed Quantity: 90.0 Unit: tablet Total Allowed Fills: 4 Fills Dispensed: 0 atorvastatin 40 mg oral tablet 1 tablet = 40 mg, By Mouth, Daily at bedtime, # 30 tablet, 0 Refills, Maintenance, 06/27/24 10:23:00 AM EST, Tablet, [facility], Partial fill upon patient request if the prescription is fora schedule II opioid drug., 172, cm, 06/27/24 7:17:00 EST, Height, 63.5, kg, 06/24/24 18:18:00 EST,Dry Weight Start Date: 06/27/24 Stop Date: 07/27/24 Status: Ordered Medication Dispense Status: Completed Quantity: 30.0 Unit: tablet Total Allowed Fills: 1 Fills Dispensed: 0 baclofen 5 mg oral tablet 1 tablet = 5 mg, By Mouth, 3 times a day, # 90 tablet, 0 Refills, Maintenance, 06/27/24 10:26:00 AMEST, Tablet, [facility], Partial fill upon patient request if the prescription is for a schedule II opioid drug., 172, cm, 06/27/24 7:17:00 EST, Height, 63.5, kg, 06/24/24 18:18:00 EST, DryWeight Start Date: 06/27/24 Status: Ordered Medication Dispense Status: Completed Quantity: 90.0 Unit: tablet Total Allowed Fills: 1 Fills Dispensed: 0 clopidogrel 75 mg oral tablet 75 mg, 1, tablet, By Mouth, Daily, # 30 tablet, Refills 0, Tot. Refills 0, Maintenance, 06/27/24 10:23:00 AM EST, Route to Pharmacy Electronically, [facility], Partial fill upon patient request if the prescription is for a schedule II opioid drug., 172, cm, 06/27/24 7:17:00 EST, Height, 63.5, kg, 06/24/24 18:18:00 EST, Dry Weight Start Date: 06/27/24 Stop Date: 07/27/24 Status: Ordered Medication Dispense Status: Completed Quantity: 30.0 Unit: tablet Total Allowed Fills: 1 Fills Dispensed: 0 duloxetine 60 mg oral enteric coated capsule 1 capsule = 60 mg, By Mouth, Daily, # 30 capsule, 0 Refills, Maintenance, 01/31/25 12:15:00 PM EDT, [facility], Partial fill upon patient request if the prescription is for a schedule II opioid drug. Start Date: 01/31/25 Status: Ordered Medication Dispense Status: Completed Quantity: 30.0 Unit: capsule Total Allowed Fills: 1 Fills Dispensed: 0 folic acid 1 mg oral tablet 1 mg, 1, tablet, By Mouth, Daily, # 30 tablet, Refills 0, Tot. Refills 0, Maintenance, 06/27/24 10:23:00 AM EST, Route to Pharmacy Electronically, [facility], Partial fill upon patient request if the prescription is for a schedule II opioid drug., 172, cm, 06/27/24 7:17:00 EST, Height, 63.5, kg, 06/24/24 18:18:00 EST, Dry Weight Start Date: 06/27/24 Stop Date: 07/27/24 Status: Ordered Medication Dispense Status: Completed Quantity: 30.0 Unit: tablet Total Allowed Fills: 1 Fills Dispensed: 0 gabapentin 400 mg oral capsule 400 mg, 1, capsule, By Mouth, 3 times a day, # 90 capsule, Refills 0, Tot. Refills 0, Maintenance, 06/27/24 10:24:00 AM EST, Route to Pharmacy Electronically, [facility], Partial fill upon patient request if the prescription is for a schedule II opioid drug., 172, cm, 06/27/24 7:17:00 EST, Height, 63.5, kg, 06/24/24 18:18:00 EST, Dry Weight Start Date: 06/27/24 Stop Date: 07/27/24 Status: Ordered Medication Dispense Status: Completed Quantity: 90.0 Unit: capsule Total Allowed Fills: 1 Fills Dispensed: 0 Hydrochlorothiazide By Mouth, Daily, 0 Refills, Maintenance, 01/31/25 12:11:00 PM EDT, Partial fill upon patient requestif the prescription is for a schedule II opioid drug. Start Date: 01/31/25 Status: Ordered Medication Dispense Status: Completed Total Allowed Fills: 1 Fills Dispensed: 0 hydrOXYzine hydrochloride 25 mg oral tablet 1 tablet = 25 mg, By Mouth, 3 times a day, PRN for anxiety, # 60 tablet, 0 Refills, Maintenance, 06/27/24 10:24:00 AM EST, Tablet, [facility], Partial fill upon patient request if the prescription is for a schedule II opioid drug., 172, cm, 06/27/24 7:17:00 EST, Height, 63.5, kg, 06/24/2418:18:00 EST, Dry Weight Start Date: 06/27/24 Stop Date: 07/11/24 Status: Ordered Medication Dispense Status: Completed Quantity: 60.0 Unit: tablet Total Allowed Fills: 1 Fills Dispensed: 0 midodrine 5 mg oral tablet 10 mg, 2, tablet, By Mouth, 3 times a day, PRN, # 180 tablet, Refills 0, Maintenance, Blood Pressure, 01/31/25 12:11:00 PM EDT, Partial fill upon patient request if the prescription is for a schedule II opioid drug. Start Date: 01/31/25 Status: Ordered Medication Dispense Status: Completed Quantity: 180.0 Unit: tablet Total Allowed Fills: 1 Fills Dispensed: 0 nicotine 14 mg/24 hr transdermal film, extended release 1 patch, Topically, Daily, # 14 patch, 0 Refills, Maintenance, 01/31/25 12:11:00 PM EDT, Patch, Partial fill upon patient request if the prescription is for a schedule II opioid drug. Start Date: 01/31/25 Stop Date: 02/14/25 Status: Ordered Medication Dispense Status: Completed Quantity: 14.0 Unit: patch Total Allowed Fills: 1 Fills Dispensed: 0 tamsulosin 0.4 mg oral capsule 0.4 mg, 1, capsule, By Mouth, Daily, # 30 capsule, Refills 0, Maintenance, 01/31/25 12:11:00 PM EDT,Partial fill upon patient request if the prescription is for a schedule II opioid drug. Start Date: 01/31/25 Status: Ordered Medication Dispense Status: Completed Quantity: 30.0 Unit: capsule Total Allowed Fills: 1 Fills Dispensed: 0 Therapeutic Multiple Vitamins with Minerals oral capsule 1 capsule, By Mouth, Daily, # 30 capsule, 0 Refills, Maintenance, 06/27/24 10:24:00 AM EST, Capsule, [facility], Partial fill upon patient request if the prescription is for a schedule II opioid drug., 1 capsule By Mouth Daily,x30 days, 172, cm, 06/27/24 7:17:00 EST, Height, 63.5, kg, 06/24/24 18:18:00 EST, Dry Weight Start Date: 06/27/24 Stop Date: 07/27/24 Status: Ordered Medication Dispense Status: Completed Quantity: 30.0 Unit: capsule Total Allowed Fills: 1 Fills Dispensed: 0 thiamine 100 mg oral tablet 100 mg, 1, tablet, By Mouth, Daily, # 30 tablet, Refills 2, Tot. Refills 2, Maintenance, 06/27/24 10:25:00 AM EST, Route to Pharmacy Electronically, [facility], Partial fill upon patient request if the prescription is for a schedule II opioid drug., 172, cm, 06/27/24 7:17:00 EST, Height, 63.5, kg, 06/24/24 18:18:00 EST, Dry Weight Start Date: 06/27/24 Stop Date: 09/25/24 Status: Ordered Medication Dispense Status: Completed Quantity: 30.0 Unit: tablet Total Allowed Fills: 3 Fills Dispensed: 0 traMADol 50 mg oral tablet 1 tablet = 50 mg, By Mouth, Every 12 hours, PRN as needed for pain, 0 Refills, Maintenance, 02/01/2512:12:00 PM EDT, Tablet, Partial fill upon patient request if the prescription is for a schedule IIopioid drug. Start Date: 01/31/25 Status: Ordered Medication Dispense Status: Completed Total Allowed Fills: 1 Fills Dispensed: 0 Voltaren Arthritis Pain 1% topical gel 4.5 inches, Topically, 4 times a day, use dosing card to measure a dose, # 100 Gm, 0 Refills, Maintenance, 10/13/24 10:11:00 AM EST, Gel, Partial fill upon patient request if the prescription is for a schedule II opioid drug. Start Date: 10/13/24 Status: Ordered Medication Dispense Status: Completed Quantity: 100.0 Unit: g Total Allowed Fills: 1 Fills Dispensed: 0 christelle bourgeois, See Instructions, # 1 each, Refills 0, Tot. Refills 0, Maintenance, height: 5'10 , weight 73 kg, dx: R ankle OA, gait instability, 02/21/25 8:11:00 AM EDT, Supply Start Date: 02/21/25 Status: Ordered Medication Dispense Status: Completed Quantity: 1.0 Unit: each Total Allowed Fills: 1 Fills Dispensed: 0 Problem List Condition Confirmation Course Effective Dates Status H ealth Status Informant Iliac artery aneurysm, bilateral Confirmed Active Anxiety Confirmed Active Biliary stricture 1 Confirmed 12/24/08 Active Chronic back pain 2, 3, 4 Confirmed 12/24/[address] scan of head 5 Confirmed 01/05/15 Active Alcohol use Confirmed Active Vertebral artery disease Confirmed Active Nasal fracture Confirmed 01/05/15 Active History of pancreatitis Confirmed Active Retinopathy, hypertensive, both eyes 6 Confirmed Active Basal ganglia lacune Confirmed 2014 Active Liver abscess due to cholangitis Confirmed 03/03/10 Active Elevated liver enzymes Confirmed Active Mixed hyperlipidemia 7 Confirmed Active PAD (peripheral artery disease) Confirmed Active PTSD (post-traumatic stress disorder) Confirmed Active Prediabetes Confirmed Active Superficial occlusion of femoral artery Confirmed Active 41415: S/P Choledochoduodenostomy.2007: 1. Laparoscopic cholecystectomy with intraoperative cholangiogram.2. Laparoscopic ultrasound interrogation of liver and hepatobiliary and pancreatic systems. : Dr. Roscoe Mcfarlane (pain specialist from [facility]) refused to prescribe the pain medications. 3Was refered to Dr. Roscoe Mcfarlane by [facility]. 4S/P Caudal epidural inj , right SI joint injection, right tranforaminal epidural inj in 2008 by [facility]-->Right L4-L5 and L5-S1 facet joint inj in 2009-->Right transformainal epidural L5 & S1 in 11/2013,then midline to left L5- S1 interlaminar inject in 01/2014. 51.1x1.8 cm lucent lesion along the left parietal skull, no aggressive features. CT scan in 2008 negative. Refer to Neuro 6per eye exam, Dr. Julian, 12/2015 7ASCVD 09/29:22.1% Patient Care team information Care Team Personnel Name: Leyla Marin Position: [facility] Outreach Member Role: Lifetime Consulting Physician Name: Lola Negro RN Position: [facility] OB RN Member Role: Primary Care Nurse Name: Anette Lee RN Position: [facility] RN Member Role: Primary Care Nurse Name: Elmo Fay RN Position: [facility] RN Member Role: Primary Care Nurse Name: Radha Johns RN Position: [facility] RN Member Role: Primary Care Nurse Name: Lord Mitchell RN Position: [facility] RN Member Role: Primary Care Nurse Name: Melissa Renteria RN Position: [facility] RN Member Role: Primary Care Nurse Name: Alejandro Morgan RN Position: [facility] RN Member Role: Primary Care Nurse Name: Rebeka Mclean RN Position: [facility] RN Member Role: Primary Care Nurse Name: Enrique Chavez RN Position: [facility] RN Member Role: Primary Care Nurse Name: Moni Casas RN Position: [facility] RN Member Role: Primary Care Nurse Name: Mani Thomas RN Position: [facility] SN RN Member Role: Primary Care Nurse Name: Sujey Sorto RN Position: [facility] RN Member Role: Primary Care Nurse Name: Eder Russ MD Position: S Outreach Member Role: PCP Address: [address] [place] [address] Telecom: Name: Fatuma Grady LPN Position: S RN Member Role: Primary Care Nurse Name: Uzair Bunch RN Position: S RN Member Role: Primary Care Nurse Care Team Related Persons Name: YOLANDA ULLOA Name: ELISABETH DUMONT Name: LOUIE WELCH Insurance Providers Guarantor name: [facility] Information #: 1 Payer: [employer] Payer Identifier: JULIANE Member Number: [id number] Group Number: [id number] Subscriber Identifier: JULIANE Relationship to Subscriber: self Coverage Type: MEDICAID Coverage Verification Date: JULIANE Telecom: NA Address: NA
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
--- OUTSIDE RECORDS SUMMARY | 2025-06-12 18:57 | XMS_ITS | Clinical Summary ---
Author Organization [facility], Address [address] [place] [address] Phone Care Team Providers Care Automobile Accessories Installer Name Role Phone Unavailable Primary Care Provider [...]
--- OUTSIDE RECORDS SUMMARY | 2025-06-12 18:57 | XMS_ITS | Clinical Summary ---
Author Organization [facility] Address [address] [facility] [address] [place] [id number] Phone Care Team Providers Care Dextrine Mixer Name Role Phone Eder Russ MD Primary Care Provider [phone] Medications acetaminophen (TYLENOL) 500 MG tablet Take [...] high school, GED, job training, learning the [place]ian language, technical skills, or developing parenting skills)? [...] housing (staying in a hotel, in a detention, living outside on the street, on a [...] INFLUENZA VACCINE (#1) 2025 09/13/2014 COVID-19 VACCINE ( - 2024-2 6 season) 2025 DEPRESSION SCREENING 07/24/2025 07/24/2024, 07/24/2024 LIPID PANEL 08/04/2028 08/04/2023, 08/04/2023, 05/02/2023 Adult Td,Tdap Booster 04/13/2034 04/13/2024 , 09/27/2008 RSV VACCINE (1 - 1-dose 75+ series) 2042 HEPATITIS C SCREENING Completed 08/04/2023 HEPATITIS A [...] Insurance C3 ACO C3 ACO C3 ACO [facility] C3 ACO Care Teams Dextrine Mixer Relationship Specialty Start Date End Date Eder Russ MD [address] [place] [address] PCP - General Family Medicine 07/10/24 Additional Source Comments The information contained in this document represents components of the legal health record. It is not the complete legal health record.[facility]
--- OUTSIDE RECORDS SUMMARY | 2025-06-12 18:57 | XMS_ITS | Clinical Summary ---
Author Organization [facility] Address [address] [place] [address] Phone Care Team Providers Care Intake Nurse Name Role Phone Danie Rey NP Primary Care Provider [phone] Encounters Date Type Department Care Team Description 03/22/2025 Telephone Gastroenterology - [place] [address] [facility] [address] [facility] [address] [place] [id number] Jamel Adame MD from Last 3 Months Social History Tobacco Use Types Packs/Day Years Used Date Smoking Tobacco: Never Assessed Sex and Gender Information Value Date Recorded Sex Assigned at Not on file Legal Sex Male 8:26 AM EST Gender Identity Not on file Sexual Orientation Not on file Plan of Treatment Upcoming Encounters Date Type Department Care Team (Late st Contact Info) Description 12/26/2025 10:00 AM EDT Consult Gastroenterology - [facility] [address] [facility] [address] [place] [id number] Nhi Kirkpatrick NP [address] [place] [address] Health Maintenance Due Date Last Done Comments Colorectal Cancer Screening: Colonoscopy 1967 Diabetes: Annual GFR (Glomerular Filtration Rate) 1967 Diabetes: Annual Foot Exam 1977 Diabetes: Annual Retina Eye Exam 1977 Pneumococcal Vaccine: 50+ Years (1 of 1 - PCV) 2017 RSV Immunization Adult Patients (1 - Risk 50-74 years 1-dose series) 2017 Zoster Vaccines (1 of 2) 2017 HIV Screening 07/18/2022 Social Influencers of Health [...] to complete this topic Insurance MEDICAID - [place] Care Teams Intake Nurse Relationship Specialty Start Date End Date Danie Rey NP [address] [place] [address] PCP - General Nurse Practitioner 03/22/25
--- OUTSIDE RECORDS SUMMARY | 2025-06-12 18:57 | XMS_ITS ---
Author Organization [facility] Address [address] [place] [address] Care Team Providers Care Cardiovascular Physician Assistant Name Role Phone Danie Rey Primary Care Provider [phone] SA38 BP Program Status:Enrolled (Active) Start date:02/24/2023 Enrollment date:02/24/2023 Case Team Name Relationship Phone Lulu Allan RN(Responsible Staff) [phone] Continued Care and Services Coordination
--- OUTSIDE RECORDS SUMMARY | 2025-06-12 18:57 | XMS_ITS | Encounter Summary ---
Author Organization [facility] Address [address] [place] [address] Care Team Providers Care Cherry Sorter Name Role Phone Danie Rey Primary Care Provider [phone] Encounter Details Date Type Department Care Team (Late st Contact Info) Description 05/30/2025 Results Follow-Up [facility] [address] [place] [id number] Danie Rey FNP [address] [place] [address] Social History Tobacco Use Types Packs/Day Years Used Date Smoking Tobacco: Every Day Cigarettes Smokeless Tobacco: Never Alcohol Use Standard Drinks/Week Comments Not Currently 0 (1 standard drink = 0.6 oz pur e alcohol) Social Connections Answer Date Recorded Connectedness 1 12/19/2023 Financial Resource Strain Answer Date R ecorded Financial Resource Strain 2 2023 Stress Answer Date Recorded Stress 2 12/19/2023 Physical Activity Answer Date Recorded Physical Activity 2 12/19/2023 Food Insecurity Answer Date Recorded Within the past 12 months, t he food you bought just didn't last and you didn't have enough money to get more. 2 04/08/20 Transportation Needs Answer Date Record ed In the past 12 months, has l ack of transportation kept you from medical appointments, meetings, work or from getting things needed for daily living? (Check all that apply) 1 2024 Housing Stability Answer Date Recorded What is your housing situation today? 2 04/08/2025 Safety [address] Answer Date Lane rded Safety 1 12/19/2023 Utilities Answer Date Recorded In the past 12 months has th e electric, gas, oil, or water [employer] threatened to shut off services in your home? 1 04/08/2025 Employment Answer Date Recorded Stress 1 12/19/2023 Sex and Gender Information Value Date Recorded Sex Assigned at Male 01/31/2023 6:04 AM PDT Legal Sex Male 5:11 AM PST Gender Identity Male 01/31/2023 6:04 AM PDT Sexual Orientation Straight 01/31/2023 6: 04 AM PDT documented as of this encounter Plan of Treatment Upcoming Encounters Date Type Department Care Team (Late st Contact Info) Description 06/13/2025 10:00 AM EDT Telemedicine Visit [facility] [address] [place] [address] Rogelio Rivas, RD [address] [place] [address] 08/21/2025 9:40 AM EST BH/MH Visits [facility] [address] [place] [id number] Gretchen Vazquez PMHNP [address] [place] [address] documented as of this encounter Goals Goal Patient Goal Type Associated Problems Recent Progress Patient-Stated? Author Blood Pressure < 130/80 Blood Pressure 92/57( 11:28 AM EDT) No Moose Chung, PharmD Hypertension: Decrease sodium intake General Improving(04/2024 10:24 AM PST) No Lulu Allan, [place] monitor bp daily using rpm device General Not on track( 10:24 AM PST) Yes Lulu Allan RN Hypertension: Medication adherence General On track( 10:24 AM PST) No Lulu Allan RN documented as of this encounter Visit Diagnoses Not on filedocumented in this encounter Additional Health Concerns Assessment Noted Time PHQ-9 Depression Total Score: 0 05/23/20 25 11:27 AM PDT documented as of this encounter Care Teams Cherry Sorter Relationship Specialty Start Date End Date Danie Rey FNP [facility] [place] [id number] PCP - General Family Medicine, KEG FILLER 12/25/24 documented as of this encounter
--- OUTSIDE RECORDS SUMMARY | 2025-06-12 18:57 | XMS_ITS | Clinical Summary ---
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 08/05/2023 7:20 AM EST FASTING:NO Eder Russ MD LAB - BLOOD DRAW Edited Result - [place] [address], [facility] [address] [address] * HIV 1/2 AG & AB W/RFLX (4TH GEN) (08/04/2023 11:34 AM EST) Pathologist [facility] HIV AG/AB, 4TH GEN NON-REAC TIVE NON-REAC TIVE [facility] Comment: HIV-1 antigen and HIV-1/HIV-2 antibodies were not detected. There is no laboratory evidence of HIV infection. PLEASE NOTE: This information has been disclosed to you from records whose confidentiality may be protected by state law. If your state requires such protection, then the state law prohibits you from making any further disclosure of the information without the specific written consent of the person to whom it pertains, or as otherwise permitted by law. A general authorization for the release of medical or other information is NOT sufficient for this purpose. For additional information please refer to http://education.[employer]/faq/ZNX702 (This link is being provided for informational/ educational purposes only.) The performance of this assay has not been clinically validated in patients less than 2 years old. Blood Blood / Unknown 08/04/2023 1 1:34 AM EST 08/04/2023 11:34 AM EST Narrative [facility] - 08/05/2023 7:20 AM EST FASTING:NO Eder Russ MD LAB - BLOOD DRAW Final Result [facility] [address] [address], [facility] [address] [address] from Last 3 Months or Most Recently Relevant to Health Maintenance Insurance [employer]AL [place] MEDICA[place] DENTAL [facility] [id number] ACO Care Teams Assistant Professor Of Physics Relationship Specialty Start Date End Date Danie Rey FNP [address] [place] [address] PCP - General Family Medicine, PROCESSES CHEMICAL DESIGN ENGINEER 12/25/24
== END 2025-06-12 15:11 | disposition home or self-care (01) ==
LOC: HO.HSM 14:36
PROVIDERS: Visit Provider Psychiatry & Neurology Neurology
DX: M47.12 Other spondylosis with myelopathy, cervical region (principal); M51.26 Other intervertebral disc displacement, lumbar region
CPT/HCPCS: 99203

== ENCOUNTER → 2025-06-12 14:36 | Outpatient (BNVA) | payer MEDICAID, SELFPAY | PROVIDERS: Visit Provider Psychiatry & Neurology Neurology | DX: M47.12 Other spondylosis with myelopathy, cervical region (principal); M51.26 Other intervertebral disc displacement, lumbar region; F41.1 Generalized anxiety disorder | CPT/HCPCS: 99202 ==

== ENCOUNTER 2025-07-30 12:25 | Outpatient (AMB) | payer MEDICAID, SELFPAY ==
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
--- OUTSIDE RECORDS SUMMARY | 2025-07-30 16:14 | XMS_ITS | Clinical Summary ---
Author Organization [address] [facility] Address [address] [place] [address] Phone Care Team Providers Care Webbing Seamer [employer] Name Role Phone Danie Rey NP Primary Care Provider [phone] Social History Tobacco Use Types Packs/Day Years Used Date Smoking Tobacco: Never Assessed Sex and Gender Information Value Date Recorded Sex Assigned at Not on file Legal Sex Male 8:26 AM EST Gender Identity Not on file Sexual Orientation Not on file Plan of Treatment Upcoming Encounters Date Type Department Care Team (Late st Contact Info) Description 08/21/2025 8:30 AM EST Office Visit Orthopedic Surgery - [place] [address] [id number] Joel Zamudio DPM [address] [address] 12/26/2025 10:00 AM EDT Consult Gastroenterology - 299 [facility] [address] [phone] Nhi Kirkpatrick NP [address] [address] Health Maintenance Due Date Last Done Comments [...] Diabetes: Annual Urine Albumin-Creatinine Ratio (uACR) 01/23/2025 COVID-19 Vaccine ( - season) 2025 Influenza Vaccine (#1) 2025 09/13/2014 Diabetes: Blood Sugar Control Test (HGBA1C) 08/31/2025 02/28/2025, 08/04/2023 Cholesterol Screening (Lipid Panel) 02/28/2030 02/28/2025, 02/28/2025, 08/04/2023, Additional history exists DTaP,Tdap,and Td Vaccines (3 - Td or [...] 20 months Aged Out No longer eligible based on patient's age to complete this topic Varicella Vaccines Aged Out No longer eligible based on patient's age to complete this [place] [id number] MEDICAID - [place] Care Teams Webbing Seamer [employer] Relationship Specialty Start Date End Date Danie Rey NP [address] [place] [address] PCP - General Nurse Practitioner 03/22/25
--- OUTSIDE RECORDS SUMMARY | 2025-07-30 16:14 | XMS_ITS | Clinical Summary ---
Author Organization [facility] Address [address] [facility] [address] [place] [id number] Phone Care Team Providers Care Financial Services Consultant Name Role Phone Eder Russ MD Primary Care Provider Unavailabl e Medications acetaminophen (TYLENOL) 500 MG tablet Take [...] high school, GED, job training, learning the [place] language, technical skills, or developing parenting skills)? [...] housing (staying in a hotel, in a senior care, living outside on the street, on a [...] ACO C3 ACO C3 ACO C3 ACO [facility] C3 ACO Care Teams Financial Services Consultant Relationship Specialty Start Date End Date Eder Russ MD PCP - General Family Medicine 07/10/24 Additional Source Comments The information contained in this document represents components of the legal health record. It is not the complete legal health record.[facility]
== END 2025-07-30 13:16 | disposition home or self-care (01) ==
LOC: HO.HSM 12:25
PROVIDERS: Visit Provider Psychiatry & Neurology Neurology
DX: M47.12 Other spondylosis with myelopathy, cervical region (principal); M51.26 Other intervertebral disc displacement, lumbar region; G56.03 Carpal tunnel syndrome, bilateral upper limbs
CPT/HCPCS: 99214

== ENCOUNTER → 2025-07-30 12:25 | Outpatient (BNVA) | payer MEDICAID, SELFPAY | PROVIDERS: Visit Provider Psychiatry & Neurology Neurology | DX: M47.12 Other spondylosis with myelopathy, cervical region (principal); M51.26 Other intervertebral disc displacement, lumbar region; G56.03 Carpal tunnel syndrome, bilateral upper limbs | CPT/HCPCS: 99212 ==